=== PATIENT | female | born 2005 | race Caucasian/White ===

== ENCOUNTER 2024-06-11 15:55 | Emergency (ER) | payer BC, SELFPAY ==
[2024-06-11 15:58] VITALS: BP 121/71
[2024-06-11 16:24] LABS: % Basophils 0.9 % (0-2); % Eosinophils 2.3 % (0-6); % Immature Granulocytes 0.2 % (0-0.5); % Lymphocytes 44.3 % (20.5-51.1); % Monocytes 10.9 % (1.7-9.3); % Neutrophils 41.4 % (42.2-75.2); Absolute Eosinophils 0.1 10^3/uL (0-0.7); Absolute Monocytes 0.5 10^3/uL (0.1-0.6); Absolute Neutrophils 1.8 10^3/uL (1.4-6.5); Hematocrit 39.7 % (37.0-47.0); Hemoglobin 13.3 g/dL (12.0-16.0); Mean Corp Hgb Conc. 33.5 g/dL (33.0-37.0); Mean Corpuscular Hgb 28.2 pg (27.0-31.0); Mean Corpuscular Volume 84.3 fL (81.0-99.0); Mean Platelet Volume 8.7 fL (7.4-10.4); Nucleated Red Blood Cells % 0 %; Platelet Count 269 10^3/uL (130-400); Red Blood Cell Count 4.71 10^6/uL (4.20-5.40); Red Cell Dist. Width 13.2 % (11.5-14.5); White Blood Cell Count 4.4 10^3/uL (4.8-10.8)
[2024-06-11 16:36] LABS: HCG, Serum Qualitative Screen Negative
[2024-06-11 16:40] LABS: ALT (SGPT) 11 U/L (0-35); AST (SGOT) 18 U/L (14-36); Albumin 4.7 g/dl (3.5-5.0); Alkaline Phosphatase 57 U/L (38-126); Blood Urea Nitrogen 9 mg/dl (7-17); Calcium 10.2 mg/dl (8.4-10.2); Carbon Dioxide 24 mmol/L (22-30); Chloride 103 mmol/L (98-107); Glucose 101 mg/dl (70-99); Potassium 3.9 mmol/L (3.5-5.1); Sodium 138 mmol/L (135-145); Total Bilirubin 0.7 mg/dl (0.2-1.3); Total Protein 7.4 g/dl (6.3-8.2); eGFR > 60.00
[2024-06-11 19:27] VITALS: BMI 20.8
--- NOTE | 2024-06-11 19:28 | EDRN ---
Pt woke this morning with abdominal pain that has gotten worse throughout the day. Pt called her [facility] and was told to try and wait until Thursday to be see. Pt has a cyst on her R ovary and an IUD that may be too big but she says the doctor wants to
wait until the cyst is smaller before changing the IUD. Pt went to her sister's house and around 1530 pt passed out. pt remembers a sharp pain going through her and her head started feeling light and fuzzy. Pt woke on the floor. No injury from
passing out. Mother says while pt was sitting in the waiting room, she had tremors that took a long time to stop. Pt has pain all over her abdomen, primarily lower abdomen. Intermittent nausea with pain. No vomiting. Abd pain waxes and wanes
and sometimes goes to lower back. No urinary symptoms, diarrhea/constipation.
[2024-06-11 19:39] VITALS: BP 104/67
--- NOTE | 2024-06-11 19:41 | ED.GENMED ---
History of Present Illness
General
Chief Complaint: Abdominal Pain
Source: patient and family
Exam Limitations: none
Time Seen by Provider: 06/11/24 19:30
Nursing documentation reviewed up to this point in time: agreed with
History of Present Illness
History of Present Illness:
19-year-old female presents emergency room due to right pelvic pain, similar to her previous endometriosis pain. Began last night and got worse today. She has sudden sharp pain that made her pass out briefly. She took Tylenol but it did not help.
Past History
Past History
ED Past Medical History: Other (Endometriosis) and Other (theo zimmermans)
ED Past Surgical History: None
Social History
Tobacco: Non-smoker
Alcohol: None
Drug: None
Personal: Single
Living: with family
Review of Systems
Review of Systems
Allergies reviewed?: Yes
All Other Systems: Not applicable
Constitutional: Reports no symptoms
EENT: Reports no symptoms
Respiratory: Reports no symptoms
Cardiac: Reports no symptoms
ABD/GI: Reports no symptoms
: Reports other (pelvic pain)
Musculoskeletal: Reports no symptoms
Skin: Reports no symptoms
Neurological: Reports no symptoms
Endocrine: Reports no symptoms
Hematologic/Lymphatic: Reports no symptoms
Psychiatric: Reports no symptoms
Phy Exam
Physical Exam
Physical Exam:
Physical Exam
General: no apparent distress, not acutely ill
Neck: supple. no meningeal signs. normal posterior pharynx
Heart: s1/s2 regular rate and rhythm, no murmur. equal radial
pulses.
HEENT: Pupils equal round reactive to light, EOMI
Lungs: no acute respiratory distress. clear bilaterally
Abdomen: normal bowel sounds. not tender. no CVAT, mild right pelvic tenderness
Neuro: alert and oriented. no focal neurological deficits cranial nerves II through XII intact
Skin: no rash
Psychiatric: well kept. interactive and cooperative
Extremities: no edema. no calf tenderness. negative homans. good distal pulses
Course
Orders/Labs/Results
Orders:
Orders
06/11/24 16:02
Test Result ONCE
06/11/24 16:10
Complete Blood Count/With Diff Urgent
Comprehensive Metabolic Panel Urgent
HCG, Serum Qualitative Screen Urgent
Lipase Urgent
Comment: ADD ON
06/11/24 19:25
Add On- LAB Urgent
Tests Added?: lipase
06/11/24 19:30
Electrocardiogram (*1) Urgent
Reason for Study: Abdominal Pain
EKG- Treatment ONCE
06/11/24 19:38
US Pelvis W Transvag Combined Urgent
Comment:
Reason For Exam: right pelvic pain
06/11/24 19:41
Ketorolac [Toradol] 15 mg IM NOW STA
06/11/24 22:23
Pantoprazole [Protonix] 40 mg PO NOW STA
Abnormal Lab Results
06/11/24
16:10
WBC 4.4 L 10^3/uL
(4.8-10.8)
Neutrophils % 41.4 L %
(42.2-75.2)
Monocytes % 10.9 H %
(1.7-9.3)
Glucose 101 H mg/dl
(70-99)
06/11/24 16:10
06/11/24 16:10
Vital Signs
Initial and Last Documented VS:
Initial Vital Signs
Temp Pulse Resp BP Pulse Ox
98.2 F 99 18 121/71 100
06/11/24 15:58 06/11/24 15:58 06/11/24 15:58 06/11/24 15:58 06/11/24 15:58
Last Documented Vital Signs
Temp Pulse Resp BP Pulse Ox
98.7 F 59 16 112/77 99
06/11/24 19:34 06/11/24 22:04 06/11/24 22:04 06/11/24 22:04 06/11/24 22:04
MDM/Problems Addressed
Differential Diagnosis Includes:
Ovarian torsion, ovarian cyst, appendicitis
MDM/Problems Addressed:
19-year-old female with right ovarian cyst. Doubt appendicitis. No signs of torsion. Patient will follow-up with [facility]. Return precautions given.
Chronic conditions affecting care: Other (Endometriosis, ovarian cysts)
*Radiology
Radiology exam reviewed: radiology read reviewed (Ultrasound shows right ovarian cyst)
*Pulse Oximetry
Patient hypoxic: no
*EKG
Interpreted by ED Provider?: NA
*Narcotics Detective Interpretation
Rate: Narcotics Detective- N/A
*Critical Care Note
Total Time (30-74mins, 75-104mins- exclusive of procedures): Not Applicable
Patient Management
Social determinants of health affecting care: Living situation and Strong social support
Escalation/DeEscalation of care consider admission/obs:
admit not indicated
ED Attending Note
-
Portions of this chart may have been created with voice recognition software.� Occasional wrong word or��sound alike� substitutions may have occurred due to the inherent limitations of voice recognition software.
Discharge Plan
Departure
Patient Disposition: Home (Routine Discharge)
Date of Disposition: 06/11/24
Time of Disposition: 22:24
Patient with high blood pressure during this ER visit?: No
Condition: Good
Discharge Problem:
Pelvic pain, Ovarian cyst
Instructions: Ovarian Cyst (DC), Abdominal Pain
Prescriptions:
New
pantoprazole [Protonix] 40 mg tablet,delayed release (DR/EC)
40 mg PO DAILY Qty: 30 0RF
No Action
famotidine 40 mg Tablet
40 mg PO DAILY
melatonin 1 mg Tablet
0.5 mg PO HS
Referrals:
Janie Levi CRNP [Family Provider] -
Interventions
Interventions:
*Risk Screen - Suicide Last Done: 06/11/24 16:00
*General Assessment Last Done: 06/11/24 16:00
*Neglect/Abuse Screening Last Done: 06/11/24 16:00
*ED- Fall Risk Assessment Last Done: 06/11/24 16:00
*ED COVID-19 Vaccine History Last Done: 06/11/24 16:00
*Nursing Disposition Last Done: 06/11/24 23:05
BO-Nskcdy-Qyaugxrbzj Assessment Last Done: 06/11/24 19:49
Discharge Date and Time
Discharge Date/Time: 06/11/24 23:05
Print Language: [place]
[2024-06-11] MEDS: TORADOL 15 MG IM (19:45)
[2024-06-11 20:04] LABS: Lipase 48 U/L (23-300)
[2024-06-11 22:04] VITALS: BP 112/77
[2024-06-11] MEDS: PROTONIX 40 MG PO (22:30)
== END 2024-06-11 23:05 | disposition home or self-care (01) ==
LOC: EMR 15:55
PROVIDERS: Emergency Medicine; EMERGENCY PHYSICIAN Emergency Medicine; FAMILY PHYSICIAN Registered Nurse
DX: R10.2 Pelvic and perineal pain (principal); N83.209 Unspecified ovarian cyst, unspecified side; N80.9 Endometriosis, unspecified
CPT/HCPCS: 99284; 96372; 76830; 76856; 80053; 83690; 84703; 85025; 93005